=== PATIENT | male | born 2000 | race Two or more races ===

== ENCOUNTER 2020-10-21 22:07 | Emergency (ER) | payer MEDICAID, OTHER ==
[~2020-10-21] VITALS: Ht 180.3 cm; Wt 68.0 kg
[2020-10-21 22:07] VITALS: BP 118/76
[2020-10-22] MEDS ORDERED: FLUORESCEIN SOD OPTH TEST STRIP LEFTEYE ONE (01:00)
[2020-10-22] MEDS ORDERED: TETRACAINE HCL 0.5% OPTH(EYE) SOLN 4ML LEFTEYE ONE (01:00)
== END 2020-10-22 01:48 | disposition home or self-care (01) ==
LOC: ER 22:13
DX: T15.92XA Foreign body on external eye, part unspecified, left eye, initial encounter (principal); X58.XXXA Exposure to other specified factors, initial encounter; Y93.89 Activity, other specified; Y92.89 Other specified places as the place of occurrence of the external cause; Y99.8 Other external cause status

== ENCOUNTER 2020-12-01 11:08 | Emergency (ER) | payer MEDICAID ==
[~2020-12-01] VITALS: Ht 177.8 cm; Wt 64.4 kg
[2020-12-01 11:12] VITALS: BP 100/74
== END 2020-12-01 13:34 | disposition left against medical advice (07) ==
LOC: ER 11:08
DX: S61.511A Laceration without foreign body of right wrist, initial encounter (principal); Z53.21 Procedure and treatment not carried out due to patient leaving prior to being seen by health care provider; W27.0XXA Contact with workbench tool, initial encounter; Y93.89 Activity, other specified; Y92.89 Other specified places as the place of occurrence of the external cause; Y99.8 Other external cause status